=== PATIENT | female | born 1950 | race Caucasian/White ===

== ENCOUNTER 2018-04-15 21:27 | Inpatient (IN) | payer MEDICARE ==
[~2018-04-15] VITALS: Ht 165.1 cm; Wt 46.2 kg
[~2018-04-15 21:27] MED LIST: ALBU8.5H8 INH; DOXY100T PO; FLUT1BLS INH; METH4TAB2 PO
[2018-04-15] MEDS ORDERED: methylPREDNISolone SOD SUCC 125 MG/2 ML IVP ONE (22:00)
[2018-04-15] MEDS ORDERED: methylPREDNISolone SOD SUCC 125 MG/2 ML ONE (22:00)
[2018-04-15] MEDS ORDERED: ALBUTEROL/IPRATROPIUM 2.5MG/0.5MG, 3 ML ONE ×2 (22:11→23:59)
[2018-04-15] MEDS: ALBUTEROL/IPRATROPIUM 2.5MG/0.5MG, 3 ML NPPB SCH (22:15)
[2018-04-15 22:30] LABS: BASOPHILS # (AUTO) 0.05 x10^3/uL (0-0.1); BASOPHILS % (AUTO) 1 % (0-1); EOSINOPHILS # (AUTO) 0.06 x10^3/uL (0-0.4); EOSINOPHILS % (AUTO) 1 % (1-7); LYMPHOCYTES # (AUTO) 0.93 x10^3/uL (1-3.4); LYMPHOCYTES % (AUTO) 12 % (22-44); MD NO; MEAN CORPUSCULAR HEMOGLOBIN 34.4 pg (27.0-34.8); MEAN CORPUSCULAR HGB CONC 34.4 g/dL (32.4-35.8); MEAN PLATELET VOLUME 9.7 fL (7.4-10.4); MONOCYTES # (AUTO) 0.39 x10^3/uL (0.2-0.8); MONOCYTES % (AUTO) 5 % (2-9); NEUTROPHILS # (AUTO) 6.65 x10^3/uL (1.8-6.8); NEUTROPHILS % (AUTO) 82 % (42-75); PLATELET COUNT 192 x10^3/uL (130-400); RED BLOOD COUNT 4.15 x10^6/uL (3.82-5.3); RED CELL DISTRIBUTION WIDTH 12.6 % (9.6-15.2)
[2018-04-15 22:42] LABS: ALBUMIN 4.1 g/dL (3.4-5.0); ANION GAP 11 mmol/L (5-15); CHLORIDE 102 mmol/L (98-107); CREATININE 0.59 mg/dL (0.55-1.02)
[2018-04-16] MEDS: ALBUTEROL/IPRATROPIUM 2.5MG/0.5MG, 3 ML NPPB SCH ×5 (00:02→20:00)
[2018-04-16] MEDS ORDERED: POLYETHYLENE GLYCOL 17 GM PACKET PO PRN (00:30)
[2018-04-16] MEDS: HEPARIN 5,000 UNITS/ML, 1ML SQ SCH ×3 (00:30→16:14)
[2018-04-16] MEDS ORDERED: BISACODYL 10 MG SUPP PR PRN (00:30)
[2018-04-16] MEDS: methylPREDNISolone SOD SUCC 125 MG/2 ML IVPush SCH ×4 (00:30→18:43)
[2018-04-16] MEDS ORDERED: AZITHROMYCIN 500 MG in SODIUM CHLORIDE 0.9% 250 ML IV SCH (00:30)
[2018-04-16] MEDS: NICOTINE 21 MG/24 HR PATCH.TD24 TD SCH (00:30)
[2018-04-16] MEDS ORDERED: ACETAMINOPHEN 325 MG TABLET PO PRN (00:30)
[2018-04-16] MEDS ORDERED: ONDANSETRON 2MG/ML, 2ML IVPush PRN (00:30)
[2018-04-16 02:01] VITALS: BP 120/77
[2018-04-16 02:33] VITALS: BP 120/71
[2018-04-16 04:54] LABS: MEAN CORPUSCULAR HEMOGLOBIN 34.2 pg (27.0-34.8); MEAN CORPUSCULAR HGB CONC 34.6 g/dL (32.4-35.8); MEAN CORPUSCULAR VOLUME 98.9 fL (80-100); RED CELL DISTRIBUTION WIDTH 12.6 % (9.6-15.2)
[2018-04-16 05:03] LABS: ALBUMIN 3.9 g/dL (3.4-5.0); ANION GAP 8 mmol/L (5-15); CALCIUM 8.1 mg/dL (8.5-10.1); CHLORIDE 103 mmol/L (98-107)
[2018-04-16 05:07] LABS: ALANINE AMINOTRANSFERASE 28 U/L (12-78); ALKALINE PHOSPHATASE 74 U/L (45-117); BILIRUBIN,TOTAL 0.5 mg/dL (0.2-1.0); TOTAL PROTEIN 7.4 g/dL (6.4-8.2)
[2018-04-16 05:12] LABS: BASOPHILS # (AUTO) 0.01 x10^3/uL (0-0.1); BASOPHILS % (AUTO) 0 % (0-1); EOSINOPHILS % (AUTO) 0 % (1-7); LYMPHOCYTES # (AUTO) 0.41 x10^3/uL (1-3.4); LYMPHOCYTES % (AUTO) 9 % (22-44); MD SCAN; MEAN PLATELET VOLUME 9.9 fL (7.4-10.4); MONOCYTES # (AUTO) 0.08 x10^3/uL (0.2-0.8); MONOCYTES % (AUTO) 2 % (2-9); NEUTROPHILS # (AUTO) 4.18 x10^3/uL (1.8-6.8); NEUTROPHILS % (AUTO) 89 % (42-75); PLATELET COUNT 191 x10^3/uL (130-400)
[2018-04-16] MEDS: BUDESONIDE 0.5 MG/2 ML INHA NPPB SCH ×2 (07:07→21:00)
[2018-04-16 07:57] VITALS: BP 158/84
[2018-04-16] MEDS: SENNA/DOCUSATE TABLET PO SCH (08:46)
[2018-04-16] MEDS: SODIUM CHLORIDE FLUSH 10ML SYR IVF SCH ×2 (08:46→21:06)
[2018-04-16] MEDS ORDERED: FLUTICASONE/VILANTEROL 200-25MCG/INH INH SCH (09:00)
[2018-04-16] MEDS ORDERED: ALBUTEROL SULFATE 2.5 MG/3 ML NPPB SCH (09:00)
[2018-04-16 12:50] VITALS: BP 103/66
[2018-04-16] MEDS ORDERED: HYDROcodone/CHLORPHENIR ORAL SUSP PO PRN (16:00)
[2018-04-16] MEDS: BENZONATATE 100 MG CAPSULE PO SCH ×2 (16:14→21:06)
[2018-04-16 19:59] VITALS: BP 114/73
[2018-04-17 00:49] VITALS: BP 108/67
[2018-04-17] MEDS: NICOTINE 21 MG/24 HR PATCH.TD24 TD SCH (01:31)
[2018-04-17] MEDS: methylPREDNISolone SOD SUCC 125 MG/2 ML IVPush SCH ×2 (01:32→08:52)
[2018-04-17] MEDS: HEPARIN 5,000 UNITS/ML, 1ML SQ SCH ×2 (01:32→08:52)
[2018-04-17] MEDS: ALBUTEROL/IPRATROPIUM 2.5MG/0.5MG, 3 ML NPPB SCH ×2 (06:47→10:22)
[2018-04-17 08:00] VITALS: BP 103/60
[2018-04-17] MEDS: BENZONATATE 100 MG CAPSULE PO SCH (08:51)
[2018-04-17] MEDS: SODIUM CHLORIDE FLUSH 10ML SYR IVF SCH (08:53)
[2018-04-17] MEDS: SENNA/DOCUSATE TABLET PO SCH (08:54)
[2018-04-17] MEDS: BUDESONIDE 0.5 MG/2 ML INHA NPPB SCH (09:00)
[2018-04-17] MEDS ORDERED: PNEUMOCOCCAL 23 VACCINE IM-VACC ONE (10:00)
[2018-04-17] MEDS ORDERED: BENZ-17 PO (10:40)
[2018-04-17] MEDS ORDERED: METH4TAB2 PO (10:40)
[2018-04-17] MEDS ORDERED: FLUT1BLS INH (10:40)
[2018-04-17] MEDS ORDERED: ALBU8.5H8 INH (10:40)
== END 2018-04-17 11:45 | disposition home or self-care (01) | DRG 191 ==
LOC: ED 23:53 → EDIP 04-16 00:13 → 4WST 04-16 03:46 → DCLOUNGE 04-17 11:25
PROVIDERS: ADMIT Hospitalist; ATTEND Hospitalist
DX: J44.1 Chronic obstructive pulmonary disease with (acute) exacerbation (principal); Z68.1 Body mass index [BMI] 19.9 or less, adult; F17.210 Nicotine dependence, cigarettes, uncomplicated; Z66 Do not resuscitate; Z98.51 Tubal ligation status; Z71.6 Tobacco abuse counseling; R63.0 Anorexia
CPT/HCPCS: 36415; 71045; 80048; 80053; 82040; 83605; 85025; 87040; 90732; 93005; 94640; 96374; 96375; G0378; J0456; J1644; J7620; J7626; J2930; J7050